=== PATIENT | female | born 1935 | race Caucasian/White ===

== ENCOUNTER 2020-12-06 21:55 | Outpatient (CLI) | payer MEDICARE, BC | END 2020-12-06 21:56 | disposition critical access hospital (66) | LOC: EMS 21:55 | DX: R55 Syncope and collapse (principal) | CPT/HCPCS: A0425; A0427 ==

== ENCOUNTER 2020-12-06 22:13 | Emergency (ER) | payer MEDICARE, BC ==
--- NOTE | 2020-12-06 22:13 | ED Physician Documentation ---
PD HPI SYNCOPE - Stated complaint Stated Complaint: SYNCOPE - History obtained from History obtained from: Patient - History of Present Illness Witnessed: Witnessed Timing - onset: How many minutes ago (approximately 30-40 minutes [employer] [facility]) Associated symptoms: Other (generalized weakness) Injury occurred: None Pain level max: 0 Pain level now: 0 Similar symptoms before: Has not had sx before Recently seen: Not recently seen - Additional information Additional information: BIBA for near syncope. Patient was at [employer] tonight and, while seated, she became lightheaded and had generalized weakness. As symptoms improved, she was helped to bathroom where she had recurrence of her symptoms (lightheaded, generalized weakness, felt like she was going to pass out). EMS arrived to find patient pale and diaphoretic, FSBS 126. SBP 154 on initial but repeat SBP was 97 despite being in same position as when first reading was obtained. Given 300cc NS IV en route, most recent bp was 105/68. Pulse 60s NSR. Review of Systems Constitutional: reports: Reviewed and negative Eyes: reports: Reviewed and negative Ears: reports: Reviewed and negative Nose: reports: Reviewed and negative Throat: reports: Reviewed and negative Cardiac: reports: Reviewed and negative Respiratory: reports: Reviewed and negative GI: reports: Nausea. denies: Abdominal Pain, Vomiting, Constipation, Diarrhea : denies: Dysuria, Frequency, Incontinent Musculoskeletal: reports: Reviewed and negative Neurologic: reports: Generalized weakness, Near syncope. denies: Focal weakness, Numbness, Syncope, Confused, Altered mental status, Headache, Head injury, LOC PD PAST MEDICAL HISTORY - Past Medical History Past Medical History: No - Past Surgical History Past Surgical History: No - Allergies Allergies/Adverse Reactions: Allergies Allergy/AdvReac Type Severity Reaction Status Date / Time Sulfa (Sulfonamide Allergy Nausea Verified 12/06/20 22:18 Antibiotics) - Living Situation Living Arrangement: reports: At home - Social History Does the pt smoke?: No PD ED PE NORMAL - Vitals Vital signs reviewed: Yes - General General: Alert and oriented X 3, No acute distress, Well developed/nourished - HEENT HEENT: PERRL, EOMI, Moist mucous membranes - Neck Neck: Supple, no meningeal sign - Cardiac Cardiac: RRR, No murmur, No gallop, No rub - Respiratory Respiratory: No respiratory distress, Clear bilaterally - Abdomen Abdomen: Soft, Non tender - Derm Derm: Normal color, Warm and dry - Extremities Extremities: No edema - Neuro Neuro: Alert and oriented X 3, configuration technician 2-12 intact, No motor deficit, No sensory deficit, Normal speech Eye Opening: Spontaneous Motor: Obeys Commands Verbal: Oriented GCS Score: 15 - Psych Psych: Normal mood, Normal affect Results - Vitals Vitals: Vital Signs - 24 hr 12/06/20 12/06/20 12/07/20 22:18 22:25 00:25 Temperature 36.5 C 36.5 C 36.6 C Heart Rate 70 70 80 Respiratory 16 16 16 Rate Blood Pressure 116/75 116/75 116/80 O2 Saturation 96 96 100 Oxygen O2 Source Room air - EKG (time done) No standard instances Rate: Rate (enter#) (68) Rhythm: NSR Snow: LAD, Anterior hemiblock Intervals: Normal IA QRS: Normal Ischemia: Normal ST segments, T wave inversion (V5, V6) - Labs Labs: Laboratory Tests 12/06/20 12/06/20 12/06/20 22:20 22:29 22:29 WBC 7.4 RBC 3.89 L Hgb 11.6 L Hct 35.7 L MCV 91.8 MCH 29.8 MCHC 32.5 RDW 14.6 Plt Count 251 MPV 8.5 Neut # (Auto) 4.7 Lymph # (Auto) 1.8 [place] # (Auto) 0.7 Eos # (Auto) 0.2 Baso # (Auto) 0.0 Absolute Nucleated RBC 0.00 Nucleated RBC % 0.0 Sodium 139 Potassium 3.5 Chloride 105 Carbon Dioxide 23 Anion Gap 11.0 BUN 22 H Creatinine 1.2 H Estimated GFR (MDRD) 43 L Glucose 120 H POC Whole Bld Glucose 112 H Calcium 9.6 Total Bilirubin 0.5 AST 34 ALT 24 Alkaline Phosphatase 57 Troponin I High Sens Total Protein 7.3 Albumin 3.9 Globulin 3.4 Albumin/Globulin Ratio 1.1 Lipase 30 12/06/20 22:29 WBC RBC Hgb Hct MCV MCH MCHC RDW Plt Count MPV Neut # (Auto) Lymph # (Auto) [place] # (Auto) Eos # (Auto) Baso # (Auto) Absolute Nucleated RBC Nucleated RBC % Sodium Potassium Chloride Carbon Dioxide Anion Gap BUN Creatinine Estimated GFR (MDRD) Glucose POC Whole Bld Glucose Calcium Total Bilirubin AST ALT Alkaline Phosphatase Troponin I High Sens 10.6 Total Protein Albumin Globulin Albumin/Globulin Ratio Lipase - Rads (name of study) chest xray Radiology: Prelim report reviewed, See rad report PD MEDICAL DECISION MAKING - ED course Complexity details: reviewed results, re-evaluated patient, considered differential, d/w patient ED course: presents after near syncope while in [employer] tonight. Stable vital signs throughout ED stay, reassuring/unremarkable blood tests (minimally elevated bun/creatinine without previous results for comparison). Results reviewed with patient and she is asymptomatic on reevaluation, including with sitting up and then standing at bedside. Departure - Departure Disposition: 01 Home, Self Care Clinical Impression: Near syncope Condition: Good Instructions: ED Near Syncope Unkn Comments: Your kidney tests were slightly abnormal, likely a coincident finding (although, as we discussed, dehydration can sometimes cause this test result and dehydration might have played a role in your symptoms tonight). When you follow up with your doctor, they might recommend repeat testing to recheck your kidney function. Discharge Date/Time: 12/07/20 01:00
[2020-12-06] MEDS ORDERED: SODIUM CHLORIDE 0.9% 1,000 ML IV STA (22:25)
[2020-12-06 22:36] LABS: BASOPHILS % (AUTO) 0.5 %; EOSINOPHILS # (AUTO) 0.2 10^3/uL (0.0-0.7); EOSINOPHILS % (AUTO) 2.3 %; HCT - HEMATOCRIT 35.7 % (37.0-47.0); HGB - HEMOGLOBIN 11.6 g/dL (12.0-16.0); LYMPHOCYTES # (AUTO) 1.8 10^3/uL (1.5-3.5); MEAN CORPUSCULAR HEMOGLOBIN 29.8 pg (27.0-31.0); MEAN CORPUSCULAR HGB CONC 32.5 g/dL (32.0-36.0); MEAN CORPUSCULAR VOLUME 91.8 fL (81.0-99.0); MEAN PLATELET VOLUME 8.5 fL (7.9-10.8); MONOCYTES # (AUTO) 0.7 10^3/uL (0.0-1.0); MONOCYTES % (AUTO) 8.9 %; NEUTROPHILS # (AUTO) 4.7 10^3/uL (1.5-6.6); NEUTROPHILS % (AUTO) 63.8 %; PLT - PLATELET COUNT 251 10^3/uL (130-450); RED BLOOD COUNT 3.89 10^6/uL (4.20-5.40); RED CELL DISTRIBUTION WIDTH 14.6 % (12.0-15.0); WHITE BLOOD COUNT 7.4 x10^3/uL (4.8-10.8)
[2020-12-06 22:50] LABS: ALBUMIN 3.9 g/dL (3.2-5.5); ALBUMIN/GLOBULIN RATIO 1.1 (1.0-2.2); BILIRUBIN,TOTAL 0.5 mg/dL (0.2-1.0); CALCIUM 9.6 mg/dL (8.5-10.3); CREATININE 1.2 mg/dL (0.4-1.0); POTASSIUM 3.5 mmol/L (3.5-5.0); TOTAL PROTEIN 7.3 g/dL (6.7-8.2)
[2020-12-07 00:42] VITALS: BP 116/80
--- NOTE | 2020-12-07 08:09 | XRAY Report ---
PROCEDURE: Chest 2 View X-Ray INDICATIONS: near syncope TECHNIQUE: 2 view(s) of the chest. COMPARISON: None. FINDINGS: Surgical changes and devices: Surgical clips in the right upper abdomen compatible with prior cholecy stectomy. Lungs and pleura: No pleural effusions or pneumothorax. Lungs are clear. There is hyperaeration an d flattening of the hemidiaphragms. Mediastinum: Mediastinal contours are normal. Heart size is normal. Bones and chest wall: No suspicious bony abnormalities. Soft tissues appear unremarkable. IMPRESSION: Chest without acute cardiopulmonary abnormalities. 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 No significant discrepancy with initial interpretation by overnight radiologist. Reviewed by: Donavon Roberts MD on 12/07/2020 8:07 AM PDT Approved by: Donavon Roberts MD on 12/07/2020 8:07 AM PDT Station ID: [id number]
== END 2020-12-07 01:00 | disposition home or self-care (01) ==
LOC: ED 22:13
DX: R55 Syncope and collapse (principal); R53.1 Weakness; R11.0 Nausea; R79.89 Other specified abnormal findings of blood chemistry; I44.4 Left anterior fascicular block
CPT/HCPCS: 36415; 80053; 83690; 84484; 85025; 93005; 99284